=== PATIENT | male | born 1975 | race Caucasian/White ===

== ENCOUNTER → 2019-10-23 05:54 | Outpatient (CLI) | payer OTHER, SELFPAY ==
--- NOTE | 2019-10-23 | DI.MRI.S_ITS ---
PROCEDURE: MR LUMBAR SPINE WO CON INDICATIONS: Low back pain TECHNIQUE: Noncontrast sagittal T1 spin echo and T2 fast echo, sagittal STIR, axial T1 and T2 fast spin echo through the lumbar spine. In cases with scoliosis, additional coronal T2 fast spin echo may be performed. COMPARISON: None. FINDINGS: Image quality: Excellent. Alignment and Curvature: There is normal bony alignment. Bone Marrow: Marrow is of normal overall signal. No acute vertebral body compression fractures. Spinal Cord: Conus medullaris terminates at the L1 level. Visualized cord demonstrates normal signal and size. Paraspinous Soft Tissues: No paravertebral masses. L1-L2: Normal appearance except for a slight degree of disc height reduction and disc desiccation.. L2-L3: Normal appearance. L3-L4: Normal appearance except for mild facet degeneration without spinal or foraminal stenosis. L4-L5: Mild degenerative disc height reduction and disc desiccation is present. There is mild to moderate facet osteoarthritis, slightly greater on the left than the right, with a small degree of left-sided foraminal stenosis but no definite nerve root impingement.. L5-S1: Normal appearance except for mild to moderate degenerative facet osteoarthritis, slightly greater on the left than the right.. 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 No disc bulge or herniation seen, no definite nerve root impingement is present but there is asymmetric left-sided mild foraminal stenosis at L4-5 and L5-S1 to the degree that there is potential for mild impingement on the course of the left L4 and left L5 nerve roots. Dictated by: Epi Boyce M.D. on 10/23/2019 at 16:53 Approved by: Epi Boyce M.D. on 10/23/2019 at 17:00
== END ==
PROVIDERS: Referring Provider Nurse Practitioner Family; Visit Provider Nurse Practitioner Family
DX: M54.5 Low back pain (principal); M51.36 Other intervertebral disc degeneration, lumbar region; M51.37 Other intervertebral disc degeneration, lumbosacral region; M48.061 Spinal stenosis, lumbar region without neurogenic claudication; M48.07 Spinal stenosis, lumbosacral region; M47.816 Spondylosis without myelopathy or radiculopathy, lumbar region; M47.817 Spondylosis without myelopathy or radiculopathy, lumbosacral region
CPT/HCPCS: 72148

== ENCOUNTER → 2020-04-21 08:10 | Outpatient (CLI) | payer OTHER, SELFPAY ==
--- NOTE | 2020-04-21 | DI.MRI.S_ITS ---
PROCEDURE: MR HAND LT WO/W CON INDICATIONS: PAIN IN FINGERS TECHNIQUE: Noncontrast coronal T1 spin echo and STIR, sagittal T1 spin echo with fat saturation and STIR, axial T1 spin echo and T2 fast spin echo with fat saturation. After the administration of contrast, axial/sagittal/coronal T1 spin echo with fat saturation through the left hand . COMPARISON: None. FINDINGS: Image quality: Suboptimal due to failure of fat suppression on some pulse sequences.. Bones: There is probable reactive marrow edema seen within the distal tuft of the index finger. No definite loss of the normal fat signal intensity to suggest osteomyelitis. The overlying cortex appears intact although not well visualized in some areas due to at the margin of the field of view. Soft tissues: Heterogeneous amorphous signal change measuring approximately 4 mm seen on image 7/8, possibly foreign body granuloma however technically nonspecific and recommend correlation to clinical findings. Diffuse soft tissue swelling and edema involving the distal tip of the index finger. The scanned muscles demonstrate normal overall bulk and internal signal. IMPRESSION: Soft tissue swelling at the tip of the index finger. Possible foreign body granuloma as detailed above at the tip of the left index finger although technically nonspecific appearance. No discrete abscess. No specific marrow signal changes to suggest osteomyelitis. No focal osseous destruction to suggest advanced osteomyelitis. If there is persistent clinical concern, continued short interval radiographic followup could be considered. Dictated by: Moose Roque M.D. on 04/21/2020 at 9:57 Approved by: Moose Roque M.D. on 04/21/2020 at 10:05
== END ==
PROVIDERS: PCP Physician Assistant; Referring Provider Nurse Practitioner Family; Visit Provider Nurse Practitioner Family
DX: M79.645 Pain in left finger(s) (principal); M79.89 Other specified soft tissue disorders
CPT/HCPCS: 73220

== ENCOUNTER → 2021-06-30 16:12 | Outpatient (CLI) | payer OTHER, SELFPAY ==
--- NOTE | 2021-06-30 | DI.US.S_ITS ---
PROCEDURE: US SOFT TISSUE HEAD AND NECK INDICATIONS: NECK LUMP TECHNIQUE: Real-time scanning was performed of the neck region of interest, with image documentation. COMPARISON: None. FINDINGS: Palpable abnormality within the left neck corresponds to a solid left thyroid nodule which measures 1.8 x 0.8 x 1.2 cm and is hypoechoic in appearance. No enlarged lymph nodes identified in the left neck. IMPRESSION: 1. Left thyroid nodule corresponding to the palpable abnormality demonstrated. Findings correspond to a TI-RADS 4 lesion and is moderately suspicious. Given its size, ultrasound-guided fine needle aspiration is recommended When clinically feasible, recommend formal thyroid ultrasound for further characterization and evaluation of the entire thyroid. Dictated by: David DE LOS SANTOS Interpreted: Alejandro Veras MD on 06/30/2021 at 17:10 Transcribed by: MARY on 06/30/2021 at 17:11 Approved by: Alejandro Veras M.D. on 07/01/2021 at 1:15
== END ==
PROVIDERS: PCP Physician Assistant; Referring Provider Nurse Practitioner Family; Visit Provider Nurse Practitioner Family
DX: E04.1 Nontoxic single thyroid nodule
CPT/HCPCS: 76536

== ENCOUNTER → 2021-07-06 12:14 | Outpatient (CLI) | payer OTHER, SELFPAY ==
--- NOTE | 2021-07-06 12:16 | DI.US.S_ITS ---
PROCEDURE: US THYROID INDICATIONS: NODULE TECHNIQUE: Real-time scanning was performed of the thyroid gland, with image documentation. COMPARISON: None. FINDINGS: Right: Thyroid lobe measures 4.4 x 1.7 x 1.6 cm, and is mildly heterogeneous in echotexture. Left: Thyroid lobe measures 4.6 x 1.8 x 1.4 cm, and is predominantly homogenous in echotexture. Isthmus: 1.6 mm thick. Nodule number: 1 Location: Left mid/medial Size: 1.8 x 1 x 1.2 cm. Composition: Solid Echogenicity: Isoechoic Shape: Wider than tall Margins: Smooth Echogenic foci: None. Total points: 3 ACR TI-RADS category: 3; Mildly suspicious IMPRESSION: Mildly suspicious left thyroid nodule as detailed above. ACR TI-RADS definitions and recommendations: TI-RADS 3 (mildly suspicious): 3 points. * FNA if 2.5 cm or larger, follow up if 1.5 cm or larger (at 1, 3, and 5 years). Dictated by: Davide Golden M.D. on 07/06/2021 at 16:11 Approved by: Davide Golden M.D. on 07/06/2021 at 16:15
== END ==
PROVIDERS: PCP Physician Assistant; Referring Provider Nurse Practitioner Family; Visit Provider Nurse Practitioner Family
DX: E04.1 Nontoxic single thyroid nodule (principal)
CPT/HCPCS: 76536

== ENCOUNTER → 2021-10-19 15:23 | Outpatient (CLI) | payer OTHER, SELFPAY ==
[2021-10-19 18:47] LABS: TSH w/ Reflex to FT4 1.35 uIU/mL (0.47-4.68)
== END ==
PROVIDERS: PCP Physician Assistant; Referring Provider Otolaryngology Facial Plastic Surgery; Visit Provider Otolaryngology Facial Plastic Surgery
DX: E04.1 Nontoxic single thyroid nodule (principal)
CPT/HCPCS: 36415; 82308; 84443